=== PATIENT | male | born 1940 | race Caucasian/White ===

== ENCOUNTER → 2018-03-04 | Outpatient (CLI) | payer MEDICARE ==
[~2018-03-04] MED LIST: AMIO200 PO; ASCO500 PO; ATOR40TA; ATOR80 PO; Aspir 8181 MG PO; Benicar Hct 401 EAC1 PO; CALCA400CH PO; CALCAVITD PO; CALCIUM PO; CHOL10002; CLON.5 PO; Cialis5 MG; Cinnamon500 MG; ENTRESTO 97 MG1 EACH; FISH1000 PO; FURO20 PO; GLIP5ER PO; LECITHIN400 MG PO; LORA10; MAGOXI400; METF500 PO; METO25; NIACIN FLUSH F PO; OLME40 PO; OMEP20ER PO; Simvastatin80 MG; TOCO400 PO; TRAZ50; VITAMIN D PO; XARELTO15 MG
== END | disposition home or self-care (01) ==
LOC: LAB SHORT 15:15 → LAB EV 15:15
DX: R39.82 Chronic bladder pain (principal)
CPT/HCPCS: 87086

== ENCOUNTER 2018-05-31 09:57 | Day surgery (SDC) | payer MEDICARE ==
[~2018-05-31] VITALS: Ht 175.3 cm; Wt 114.7 kg
== END 2018-05-31 11:12 | disposition home or self-care (01) ==
LOC: ORSCSDS 09:57
PROVIDERS: Anesthesiology
PROC: 3E0R33Z Introduction of Anti-inflammatory into Spinal Canal, Percutaneous Approach (ICD-10-PCS; principal; 2018-05-31 11:00)
DX: M54.16 Radiculopathy, lumbar region (principal); M96.1 Postlaminectomy syndrome, not elsewhere classified; I10 Essential (primary) hypertension; Z87.891 Personal history of nicotine dependence; G47.33 Obstructive sleep apnea (adult) (pediatric); E11.9 Type 2 diabetes mellitus without complications; E78.5 Hyperlipidemia, unspecified; I25.10 Atherosclerotic heart disease of native coronary artery without angina pectoris; J44.9 Chronic obstructive pulmonary disease, unspecified; E66.01 Morbid (severe) obesity due to excess calories; Z68.37 Body mass index [BMI] 37.0-37.9, adult; Z79.899 Other long term (current) drug therapy; I48.91 Unspecified atrial fibrillation; Z79.01 Long term (current) use of anticoagulants
CPT/HCPCS: J1040

== ENCOUNTER → 2018-07-11 | Outpatient (CLI) | payer MEDICARE | LOC: LAB SRC 12:30 → LAB SHORT 12:30 → LAB FUT 07-11 09:25 → EDSTATUS 07-11 09:25 | DX: R19.7 Diarrhea, unspecified (principal) | CPT/HCPCS: 87493 ==

== ENCOUNTER → 2018-09-11 | Outpatient (CLI) | payer MEDICARE ==
[2018-09-11 21:41] LABS: Campylobacter Sp Not Detected (NOT DETECT)
[2018-09-11 21:42] LABS: Adenovirus F 40/41 Not Detected (NOT DETECT); Astrovirus Not Detected (NOT DETECT); Cryptosporidium Not Detected (NOT DETECT); Cyclospora Cayetanensis Not Detected (NOT DETECT); E. Coli O157 Not Detected (NOT DETECT); Entamoeba Histolytica Not Detected (NOT DETECT); Enteroaggregative E. coli-EAEC Not Detected (NOT DETECT); Enteropathogenic E. coli-EPEC Not Detected (NOT DETECT); Enterotoxigenic E. coli-ETEC Not Detected (NOT DETECT); Giardia Lamblia Not Detected (NOT DETECT); Norovirus GI/GII Not Detected (NOT DETECT); Plesiomonas Shigelloides Not Detected (NOT DETECT); Rotavirus A Not Detected (NOT DETECT); Salmonella Sp Not Detected (NOT DETECT); Sapovirus Not Detected (NOT DETECT); Shiga Toxin-prod E. coli-STEC Not Detected (NOT DETECT); Shigella/Enteroin E. coli-EIEC Not Detected (NOT DETECT); Vibrio Cholerae Not Detected (NOT DETECT); Vibrio Sp Not Detected (NOT DETECT); Yersinia Enterocolitica Not Detected (NOT DETECT)
[2018-09-12 13:38] LABS: Stool Occult Bld Immuno 1 Negative (NEGATIVE)
== END ==
LOC: LAB SRC 10:00 → LAB SHORT 10:00
PROVIDERS: Nurse Practitioner
DX: R19.7 Diarrhea, unspecified (principal)
CPT/HCPCS: 0097U; 87177; 87209; 89055; G0328

== ENCOUNTER 2019-09-03 10:53 | Day surgery (SDC) | payer MEDICARE ==
[~2019-09-03] VITALS: Ht 175.3 cm; Wt 108.8 kg
[2019-09-03] MEDS ORDERED: SPIR25 PO (11:09)
[2019-09-03] MEDS ORDERED: FURO20 PO (11:10)
[2019-09-03] MEDS ORDERED: Aspir 8181 MG PO (11:11)
== END 2019-09-03 11:44 | disposition home or self-care (01) ==
LOC: ORSCSDS 10:53
PROVIDERS: Anesthesiology
PROC: 3E0R33Z Introduction of Anti-inflammatory into Spinal Canal, Percutaneous Approach (ICD-10-PCS; principal; 2019-09-03 12:45)
DX: M54.16 Radiculopathy, lumbar region (principal); I10 Essential (primary) hypertension; M96.1 Postlaminectomy syndrome, not elsewhere classified; I48.91 Unspecified atrial fibrillation; E11.9 Type 2 diabetes mellitus without complications; I25.10 Atherosclerotic heart disease of native coronary artery without angina pectoris; E78.00 Pure hypercholesterolemia, unspecified; E66.9 Obesity, unspecified; Z68.35 Body mass index [BMI] 35.0-35.9, adult; Z79.01 Long term (current) use of anticoagulants; Z79.899 Other long term (current) drug therapy
CPT/HCPCS: J1040

== ENCOUNTER 2022-09-26 10:53 | Emergency (ER) | payer OTHER, MEDICARE ==
[~2022-09-26] VITALS: Ht 175.3 cm; Wt 103.4 kg
[~2022-09-26 10:53] MED LIST changes: +SPIR25 PO
[2022-09-26 11:01] VITALS: BP 136/73
[2022-09-26 12:09] LABS: BASOPHILS PERCENT AUTO 1 % (0-2); EOSINOPHILS ABSOLUTE AUTO 0.23 K/mm3 (0.00-0.68); EOSINOPHILS PERCENT AUTO 3 % (0-6); Hemoglobin 12.4 g/dL (13.5-17.5); IMMATURE GRAN ABSOLUTE AUTO 0.04 K/mm3 (0.00-0.10); IMMATURE GRAN PERCENT AUTO 1 % (0-1); LYMPHOCYTES ABSOLUTE AUTO 0.68 K/mm3 (0.84-5.20); LYMPHOCYTES PERCENT AUTO 8 % (21-46); MONOCYTES ABSOLUTE AUTO 0.63 K/mm3 (0.16-1.47); MONOCYTES PERCENT AUTO 8 % (4-13); Mean Corpuscular HGB 31.9 pg (26.0-34.0); Mean Corpuscular HGB Conc 33.5 g/dL (31.5-36.5); Mean Corpuscular Volume 95 fL (80-100); Mean Platelet Volume 12.3 fL (9.1-12.4); NEUTROPHILS ABSOLUTE AUTO 6.71 K/mm3 (1.96-9.15); NEUTROPHILS PERCENT AUTO 80 % (41-73); Platelet Count 117 K/mm3 (150-400); RDW Coefficient Variation 12.8 % (11.7-14.2); RDW Standard Deviation 44.6 fL (35.1-46.3); Red Blood Cell Count 3.89 M/mm3 (4.30-5.90); White Blood Cell Count 8.39 K/mm3 (4.00-11.30)
[2022-09-26 12:33] LABS: Albumin, Blood 3.5 g/dL (3.4-5.0); Bilirubin, Total 0.8 mg/dL (0.1-1.0); Bun/Creatinine Ratio 18.9 (12.0-20.0); Calcium, Blood 9.8 mg/dL (8.5-10.1); Creatinine, Blood 1.32 mg/dL (0.60-1.20); Globulin, Blood 3.6 g/dL (2.2-4.0); Potassium, Blood 4.5 mmol/L (3.5-5.5); Total Protein, Blood 7.1 g/dL (6.4-8.2)
[2022-09-26] MEDS ORDERED: Percocet 5-3251 EACH PO (13:11)
== END 2022-09-26 13:25 | disposition home or self-care (01) ==
LOC: ER 10:53
PROVIDERS: Family Medicine Adult Medicine
DX: Z04.89 Encounter for examination and observation for other specified reasons (principal); I10 Essential (primary) hypertension; E11.9 Type 2 diabetes mellitus without complications; I25.10 Atherosclerotic heart disease of native coronary artery without angina pectoris; W01.0XXA Fall on same level from slipping, tripping and stumbling without subsequent striking against object, initial encounter; Z95.1 Presence of aortocoronary bypass graft; Z95.2 Presence of prosthetic heart valve; Z87.891 Personal history of nicotine dependence; Z79.02 Long term (current) use of antithrombotics/antiplatelets; Z79.82 Long term (current) use of aspirin
CPT/HCPCS: 70450; 71045; 76700; 80053; 85025; 99284-25

== ENCOUNTER 2023-02-13 13:19 | Emergency (ER) | payer OTHER, MEDICARE ==
[~2023-02-13] VITALS: Ht 177.8 cm; Wt 99.8 kg
[~2023-02-13 13:19] MED LIST changes: +Percocet 5-3251 EACH PO
[2023-02-13 13:23] VITALS: BP 134/84
== END 2023-02-13 14:53 | disposition home or self-care (01) ==
LOC: ER 13:19
DX: S80.12XA Contusion of left lower leg, initial encounter (principal); W54.1XXA Struck by dog, initial encounter; I48.91 Unspecified atrial fibrillation; I12.9 Hypertensive chronic kidney disease with stage 1 through stage 4 chronic kidney disease, or unspecified chronic kidney disease; E11.22 Type 2 diabetes mellitus with diabetic chronic kidney disease; I25.10 Atherosclerotic heart disease of native coronary artery without angina pectoris; N18.31 Chronic kidney disease, stage 3a; E78.2 Mixed hyperlipidemia; Z79.899 Other long term (current) drug therapy; Z79.84 Long term (current) use of oral hypoglycemic drugs; Z79.82 Long term (current) use of aspirin; Z79.01 Long term (current) use of anticoagulants; Z88.8 Allergy status to other drugs, medicaments and biological substances; Z87.891 Personal history of nicotine dependence
CPT/HCPCS: 36415; 73590; 80053; 80061; 82043; 83036; 85025; 93971; 99284-25